=== PATIENT | male | born 1990 | race Two or more races ===

== ENCOUNTER 2023-06-01 21:14 | Emergency (ER) | payer SELFPAY ==
[~2023-06-01] VITALS: Ht 180.3 cm; Wt 114.0 kg
[2023-06-01 21:21] VITALS: BP 139/93; PULSE 90; RESP 14; TEMP 98.3; O2SAT 100
== END 2023-06-02 02:22 | disposition left against medical advice (07) ==
LOC: ER 21:14
DX: M79.10 Myalgia, unspecified site (principal); Z53.21 Procedure and treatment not carried out due to patient leaving prior to being seen by health care provider
CPT/HCPCS: 99281

== ENCOUNTER 2023-06-02 04:05 | Emergency (ER) | payer SELFPAY ==
[~2023-06-02] VITALS: Ht 180.3 cm; Wt 113.5 kg
[2023-06-02 04:27] VITALS: BP 153/98; PULSE 80; RESP 14; TEMP 98.5; O2SAT 98
[2023-06-02] MEDS ORDERED: CLONIDINE 0.1MG TABLET PO ONE (05:45)
== END 2023-06-02 05:57 | disposition home or self-care (01) ==
LOC: ER 04:05
DX: F11.23 Opioid dependence with withdrawal (principal)
CPT/HCPCS: 99283